=== PATIENT | female | born 1970 | race Caucasian/White ===

== ENCOUNTER 2017-03-17 19:49 | Emergency (ER) | payer OTHER ==
[2017-03-17 20:02] VITALS: BP 142/93; PULSE 82; TEMP 98.1; BMI 23.3
--- NOTE | 2017-03-17 20:12 | PDOC ---
History of Present Illness - General Chief Complaint: Foreign Body (FB) Stated Complaint: CHICKEN PIECE STUCK IN THROAT Time Seen by Provider: 03/17/17 20:11 History Source: Patient Exam Limitations: No Limitations - History of Present Illness Timing/Duration: 1-3 hours Severity: mild Associated Symptoms: reports: denies symptoms Past History - Travel Traveled outside of the country in the last 30 days: No Close contact w/someone who was outside of country & ill: No - Past Medical History Allergies/Adverse Reactions: Allergies Allergy/AdvReac Type Severity Reaction Status Date / Time No Known Allergies Allergy Verified 03/17/17 19:54 Home Medications: Ambulatory Orders Famotidine [Pepcid] 20 mg PO DAILY #14 tablet 08/09/16 Omeprazole 10 mg PO ASDIR 08/09/16 Anemia: No Asthma: No Cancer: No Cardiac Disorders: No CVA: No COPD: No CHF: No Dementia: No Diabetes: No GI Disorders: Yes (Hiatal hernia, GERD) Disorders: No HTN: No Hypercholesterolemia: No Liver Disease: No Seizures: No Thyroid Disease: No - Surgical History Abdominal Surgery: No Appendectomy: No Cardiac Surgery: No Cholecystectomy: No Lung Surgery: No Neurologic Surgery: No Orthopedic Surgery: No - Psycho/Social/Smoking Cessation Hx Anxiety: No Suicidal Ideation: No Smoking Status: No Smoking History: Never smoked Have you smoked in the past 12 months: No Number of Cigarettes Smoked Daily: 0 Information on smoking cessation initiated: No Hx Alcohol Use: No Drug/Substance Use Hx: No Substance Use Type: None Hx Substance Use Treatment: No Patient Lives Alone: No Lives with/in: spouse/SO Review of Systems - Review of Systems Able to Perform ROS?: Yes Constitutional: No: Symptoms Reported HEENTM: Yes: Other Respiratory: No: Symptoms reported Integumentary: No: Symptoms Reported *Physical Exam - Vital Signs Last Vital Signs Temp Pulse Resp BP Pulse Ox 98.1 F 82 20 142/93 98 03/17/17 19:55 03/17/17 19:55 03/17/17 19:55 03/17/17 19:55 03/17/17 19:55 - Physical Exam General Appearance: Yes: Nourished, Appropriately Dressed. No: Apparent Distress HEENT: negative: Pharynx Normal (noted thin piece of chicken lodged to left posterior pharynx protruding from behind the uvula) Neck: positive: Supple. negative: Tender Medical Decision Making - Medical Decision Making 03/17/17 20:18 Pt with chicken lodged to back of throat. Removed using alligator forceps. Discharge home *DC/Admit/Observation/Transfer Diagnosis at time of Disposition: Foreign body in throat Qualifiers: Encounter type: initial encounter Qualified Code(s): T17.208A - Unspecified foreign body in pharynx causing other injury, initial encounter - Discharge Dispostion Disposition: HOME Condition at time of disposition: Improved - Referrals Referrals: Vandana Dobson MD [Primary Care Provider] - - Patient Instructions Printed Discharge Instructions: DI for Foreign Body, Swallowed-Adult Additional Instructions: You have no restrictions presently .
== END 2017-03-17 20:14 | disposition home or self-care (01) ==
LOC: JER 19:49
DX: K21.9 Gastro-esophageal reflux disease without esophagitis (principal)
CPT/HCPCS: 99281-25

== ENCOUNTER 2017-09-13 00:01 | Emergency (ER) | payer OTHER ==
[2017-09-13 00:50] VITALS: BP 138/88; PULSE 78; TEMP 97.7; BMI 23.0
--- NOTE | 2017-09-13 01:07 | PDOC ---
History of Present Illness - General Chief Complaint: Sore Throat Stated Complaint: PAIN Time Seen by Provider: 09/13/17 01:06 History Source: Patient - History of Present Illness Initial Comments: 09/13/17 02:03 47 year old female right sided neck/ throat painx 2-3 weeks. patient has followed up with pmd who has send thyroid u/s and TFTs which are wnl. denies foreign body, cough, nasal congestion. patient has a history of 09/13/17 02:11 Past History - Past Medical History Allergies/Adverse Reactions: Allergies Allergy/AdvReac Type Severity Reaction Status Date / Time No Known Allergies Allergy Verified 03/17/17 19:54 Home Medications: Ambulatory Orders Omeprazole 10 mg PO ASDIR 08/09/16 Anemia: No Asthma: No Cancer: No Cardiac Disorders: No CVA: No COPD: No CHF: No Dementia: No Diabetes: No GI Disorders: Yes (Hiatal hernia, GERD) Disorders: No HTN: No Hypercholesterolemia: No Liver Disease: No Seizures: No Thyroid Disease: No - Surgical History Abdominal Surgery: No Appendectomy: No Cardiac Surgery: No Cholecystectomy: No Lung Surgery: No Neurologic Surgery: No Orthopedic Surgery: No - Suicide/Smoking/Psychosocial Hx Smoking Status: No Smoking History: Never smoked Have you smoked in the past 12 months: No Number of Cigarettes Smoked Daily: 0 Hx Alcohol Use: No Drug/Substance Use Hx: No Substance Use Type: None Hx Substance Use Treatment: No *Physical Exam - Vital Signs Last Vital Signs Temp Pulse Resp BP Pulse Ox 97.7 F 78 18 138/88 99 09/13/17 00:33 09/13/17 00:33 09/13/17 00:33 09/13/17 00:33 09/13/17 00:33 - Physical Exam General Appearance: Yes: Appropriately Dressed HEENT: positive: Normal ENT Inspection Respiratory/Chest: positive: Lungs Clear, Normal Breath Sounds Gastrointestinal/Abdominal: positive: Normal Bowel Sounds, Soft Integumentary: positive: Normal Color, Dry, Warm Neurologic: positive: Fully Oriented, Alert, Normal Mood/Affect *DC/Admit/Observation/Transfer Diagnosis at time of Disposition: Throat pain in adult - Discharge Dispostion Disposition: HOME - Referrals Referrals: Bernadine Hirsch MD [Primary Care Provider] - Call tomorrow - Patient Instructions Printed Discharge Instructions: Sore Throat - Post Discharge Activity
[2017-09-13] MEDS ORDERED: IBUPROFEN 600 MG TABLET (FP) PO ONE ×2 (01:44→01:50)
== END 2017-09-13 02:21 | disposition home or self-care (01) ==
LOC: JER 00:01
DX: M54.2 Cervicalgia (principal); R07.0 Pain in throat
CPT/HCPCS: 99281-25

== ENCOUNTER 2018-01-03 23:53 | Emergency (ER) | payer OTHER ==
[2018-01-03] MEDS ORDERED: KETOROLAC TROMETHAMINE 60 MG/2 ML VIAL IM ONE (23:59)
[2018-01-04] MEDS ORDERED: diazePAM 2 MG TABLET PO ONE
[2018-01-04 00:02] VITALS: BP 144/99; PULSE 69; BMI 23.9
--- NOTE | 2018-01-04 00:03 | PDOC ---
History of Present Illness - General Chief Complaint: Pain, Acute Stated Complaint: PRESSURE HEADACHE/STRESS Time Seen by Provider: 01/03/18 23:58 History Source: Patient Exam Limitations: No Limitations - History of Present Illness Initial Comments: 01/04/18 00:10 This is a 47-year-old female who comes in complaining of a tension type headache. Patient said that she has history of tension headaches when she has a screening minutes and stress related to her some 24-year-old son who is still living at home. Patient said there is been a lot of stress lately and she comes in complaining of a headache. Patient took Tylenol prior to coming in but didn' t want to take anything stronger. Patient denied any fever, chills, neck stiffness, vomiting or change in vision or neurological complaints. PAST MEDICAL HISTORY: no significant history PAST SURGICAL HISTORY: no significant history FAMILY HISTORY: no pertinant history SOCIAL HISTORY: Pt lives with family and is employed. MEDICATIONS: reviewed ALLERGIES: As per nursing notes Review of Systems General: No fevers or chills, no weakness, no weight loss HEENT: No change in vision. No sore throat,. No ear pain CardioVascular: No chest pain or shortness of breath Respiratory:No cough, or wheezing. Gastrointestinal: no nausea, vomitting, diarrhea or constipation, No rectal bleeding Genitourinary: No dysuria, hematuria, or frequency Musculoskeletal: No joint or muscle pain or swelling Neurologic: No headache, vertigo, dizziness or loss of consciousness Psychiatric: nor depression Skin: No rashes or easy bruising Endocrine: no increased thirst or abnormal weight change Allergic: no skin or latex allergy All other systems reviewed and normal GENERAL: The patient is awake, alert, and fully oriented, in no acute distress. HEAD: Normal with no signs of trauma. EYES: Pupils equal, round and reactive to light, extraocular movements intact, sclera anicteric, conjunctiva clear. EXTREMITIES: Normal range of motion, no edema. NEUROLOGICAL: Normal speech, normal gait. grossly intact PSYCH: Normal mood, normal affect. SKIN: Warm, Dry, normal turgor, no rashes or lesions noted. Assessment and plan: This is a 47-year-old female who comes in with a tension type headache. Patient given Motrin and Valium with improvement of her symptoms. Patient discharged home with her who drove her home. Past History - Past Medical History Allergies/Adverse Reactions: Allergies Allergy/AdvReac Type Severity Reaction Status Date / Time No Known Allergies Allergy Verified 01/03/18 23:55 Home Medications: Ambulatory Orders NK [No Known Home Medication] 01/03/18 Anemia: No Asthma: No Cancer: No Cardiac Disorders: No CVA: No COPD: No CHF: No DVT: No Dementia: No Diabetes: No Dialysis: No GI Disorders: Yes (Hiatal hernia, GERD) Disorders: No HTN: No Hypercholesterolemia: No Kidney Stones: No Liver Disease: No Psychiatric Problems: No Seizures: No Thyroid Disease: No Lung CA: No - Surgical History Abdominal Surgery: No Appendectomy: No Cardiac Surgery: No Cholecystectomy: No Lung Surgery: No Neurologic Surgery: No Orthopedic Surgery: No - Suicide/Smoking/Psychosocial Hx Smoking Status: No Smoking History: Never smoked Have you smoked in the past 12 months: No Number of Cigarettes Smoked Daily: 0 Hx Alcohol Use: No Drug/Substance Use Hx: No Substance Use Type: None Hx Substance Use Treatment: No *DC/Admit/Observation/Transfer Diagnosis at time of Disposition: Stress at home Headache Qualifiers: Headache type: tension-type Headache chronicity pattern: episodic headache Intractability: not intractable Qualified Code(s): G44.219 - Episodic tension- type headache, not intractable - Discharge Dispostion Disposition: HOME Condition at time of disposition: Stable Decision to Admit order: No - Referrals - Patient Instructions Additional Instructions: Return to the emergency department immediately with ANY new, persistent or worsening symptoms. Continue any medications as previously prescribed by your physician. You should follow up with your primary doctor as soon as possible regarding today's emergency department visit. . Please make sure your doctor reviews the results of your emergency evaluation. Thank you for coming to the Emergency Department today for your care. It was a pleasure to see you today. Please note that your evaluation is INCOMPLETE until you follow-up with your doctor. - Post Discharge Activity
[2018-01-04] MEDS ORDERED: diazePAM 2 MG TABLET ONE (00:08)
[2018-01-04] MEDS ORDERED: KETOROLAC TROMETHAMINE 60 MG/2 ML VIAL ONE (00:08)
== END 2018-01-04 00:36 | disposition home or self-care (01) ==
LOC: FER 23:53
PROC: 3E0233Z Introduction of Anti-inflammatory into Muscle, Percutaneous Approach (ICD-10-PCS; principal; 2018-01-03)
DX: G44.219 Episodic tension-type headache, not intractable (principal); F43.0 Acute stress reaction; K21.9 Gastro-esophageal reflux disease without esophagitis
CPT/HCPCS: 99281-25

== ENCOUNTER 2019-04-16 19:43 | Emergency (ER) | payer OTHER ==
[2019-04-16 19:53] VITALS: BP 136/85; PULSE 97; TEMP 98.5; BMI 23.3
--- NOTE | 2019-04-16 19:53 | PDOC ---
Rapid Medical Evaluation Medical Evaluation: Allergies Allergy/AdvReac Type Severity Reaction Status Date / Time No Known Allergies Allergy Verified 02/16/18 14:23 I have performed a brief in-person evaluation of this patient. The patient presents with a chief complaint of: c/o sore throat from 2 days ago ; denies cough, congestion, sob, cp, fever Pertinent physical exam findings: Mild B/L tonsillar enlargement, no exudates; slightly hoarsy voice I have ordered the following: nothing The patient will proceed to the ED for further evaluation. 04/16/19 19:48
--- NOTE | 2019-04-16 20:24 | PDOC ---
History of Present Illness - General Chief Complaint: Sore Throat Stated Complaint: THROAT DISCOMFORT Time Seen by Provider: 04/16/19 19:48 - History of Present Illness Initial Comments: 04/16/19 20:19 48 y/o F w PMH of GERD presents for evaluation of anterior neck pain without any systematic symptoms or difficulty swallowing x 3 days. She has concern about her thyroid and would like an US Past History - Past Medical History Allergies/Adverse Reactions: Allergies Allergy/AdvReac Type Severity Reaction Status Date / Time No Known Allergies Allergy Verified 04/16/19 19:50 Home Medications: Ambulatory Orders Diazepam [Valium] 2 mg PO DAILY PRN #14 tablet MDD 1 01/04/18 Naproxen 500 mg PO BID #15 tablet 01/04/18 Naproxen 375 mg PO PRN #30 tablet 02/16/18 Anemia: No Asthma: No Cancer: No Cardiac Disorders: No CVA: No COPD: No CHF: No DVT: No Dementia: No Diabetes: No Dialysis: No GI Disorders: Yes (Hiatal hernia, GERD) Disorders: No HTN: No Hypercholesterolemia: No Kidney Stones: No Liver Disease: No Psychiatric Problems: No Seizures: No Thyroid Disease: No Lung CA: No - Surgical History Abdominal Surgery: No Appendectomy: No Cardiac Surgery: No Cholecystectomy: No Lung Surgery: No Neurologic Surgery: No Orthopedic Surgery: No - Suicide/Smoking/Psychosocial Hx Smoking Status: No Smoking History: Never smoked Have you smoked in the past 12 months: No Number of Cigarettes Smoked Daily: 0 Hx Alcohol Use: No Drug/Substance Use Hx: No Substance Use Type: None Hx Substance Use Treatment: No Review of Systems - Review of Systems HEENTM: Yes: See HPI *Physical Exam - Vital Signs Last Vital Signs Temp Pulse Resp BP Pulse Ox 98.5 F 97 H 18 136/85 98 04/16/19 19:50 04/16/19 19:50 04/16/19 19:50 04/16/19 19:50 04/16/19 19:50 - Physical Exam Comments: 04/16/19 20:20 HEAD: NC/AT EYES: Conjuntiva clear Ears: Canals and TM's normal NOSE: No d/c THROAT: Moist mucous membrances, oral pharanx clear, uvula midline NECK: Supple without adenopathy; mild anterior neck tenderness w/o palpable masses CARDIAC: S1 S2 LUNGS: CTA Full and Equal breath sounds ABDOMEN: Soft NT ND MS: Full ROM in all joints without edema NEUROLOGIC: No gross sensory or motor deficits, NVID SKIN: Normal color and temperature no lesions or rashes ED Treatment Course - RADIOLOGY Radiology Studies Ordered: Category Date Time Status THYROID US [US] Stat Ultrasound 04/16/19 20:18 Ordered Medical Decision Making - Medical Decision Making 04/16/19 20:20 Pt is scared and would like an US of her thyroid; I ordered the US. However Radiology called and stated they do not do thyroid US. I will have her f/u with ENT. *DC/Admit/Observation/Transfer Diagnosis at time of Disposition: Neck pain - Discharge Dispostion Disposition: HOME Condition at time of disposition: Stable - Referrals Referrals: Bernadine Hirsch MD [Primary Care Provider] - Jimmy Daiz MD [Staff Physician] - - Patient Instructions Additional Instructions: Unfortunately, emergent thyroid ultrasounds are not done in our Emergency Room as per our radiology department. Please follow up with ENT in 1-2 days for further evaluation and treatment options and return to the emergency room should symptoms worsen. - Post Discharge Activity
== END 2019-04-16 20:30 | disposition home or self-care (01) ==
LOC: JERFT 19:43
DX: M54.2 Cervicalgia (principal)
CPT/HCPCS: 99281-25

== ENCOUNTER 2020-02-16 11:02 | Emergency (ER) | payer OTHER ==
[2020-02-16 11:16] VITALS: BMI 23.9
--- NOTE | 2020-02-16 11:16 | PDOC ---
Rapid Medical Evaluation Chief Complaint: Headache Time Seen by Provider: 02/16/20 11:14 Medical Evaluation: Allergies Allergy/AdvReac Type Severity Reaction Status Date / Time No Known Allergies Allergy Verified 08/10/19 02:27 02/16/20 11:15 CC: lightheadedness, feels nervous, headache, no visual changes, requesting covid testing, although has had no contacts Exam: tachy at 112, afebrile, Plan: tylenol 02/16/20 11:19 Discharge Disposition - Diagnosis Headache - Referrals Referrals: Bernadine Hirsch MD [Primary Care Provider] - - Patient Instructions - Post Discharge Activity
[2020-02-16] MEDS ORDERED: ACETAMINOPHEN 500 MG TABLET (FP) PO ONE (11:19)
[2020-02-16] MEDS ORDERED: ACETAMINOPHEN 325 MG TABLET (FP) ONE (11:25)
--- NOTE | 2020-02-16 12:37 | PDOC ---
Documentation entered by Shawna Gomez SCRIBE, acting as scribe for Jeanne Kelly MD. Jeanne Kelly MD: This documentation has been prepared by the Patricia echeverria Brenda, SCRIBE, under my direction and personally reviewed by me in its entirety. I confirm that the documentation accurately reflects all work, treatment, procedures, and medical decision making performed by me. History of Present Illness - General Chief Complaint: Headache Stated Complaint: BODYACHES/HEADACHE Time Seen by Provider: 02/16/20 11:14 History Source: Patient Exam Limitations: No Limitations - History of Present Illness Initial Comments: 02/16/20 12:04 The patient is a 49 year old female, with a significant PMH of osteoporosis, vertigo, gastritis and frequent headaches who presents to the emergency department for evaluation of 1 day of a severe headache and feeling fatigued. Patient states that yesterday she felt what felt like a painful tension headache, whereas today she feels very lightheaded, "not herself" and nauseas. She also states she felt like her nose area was warmer, as if she was getting a cold. Endorses sneezing and feeling very anxious and unsteady. She states that she does not know if she is short of breath or can't catch her breath from being anxious. She also notes feeling the need to cry. The patient denies lost of taste/smell. Denies chest pain and dizziness. Denies fever, chills, vomiting, diarrhea and constipation. Denies dysuria, frequency, urgency and hematuria. Allergies: NKA Social history: None reported Past History - Medical History Allergies/Adverse Reactions: Allergies Allergy/AdvReac Type Severity Reaction Status Date / Time No Known Allergies Allergy Verified 08/10/19 02:27 Home Medications: Ambulatory Orders Omeprazole 20 mg PO DAILY 02/16/20 Anemia: No Asthma: No Cancer: No Cardiac Disorders: No CVA: No COPD: No CHF: No DVT: No Dementia: No Diabetes: No Dialysis: No GI Disorders: Yes (Hiatal hernia, GERD) Disorders: No HTN: No Hypercholesterolemia: No Kidney Stones: No Liver Disease: No Psychiatric Problems: No Seizures: No Thyroid Disease: No Lung CA: No Other medical history: Osteopororis - Surgical History Abdominal Surgery: No Appendectomy: No Cardiac Surgery: No Cholecystectomy: No Lung Surgery: No Neurologic Surgery: No Orthopedic Surgery: No - Immunization History Immunization Up to Date: Yes - Psycho-Social/Smoking History Smoking Status: No Smoking History: Never smoked Have you smoked in the past 12 months: No Number of Cigarettes Smoked Daily: 0 Information on smoking cessation initiated: No - Substance Abuse Hx (Audit-C & DAST Scrn) How often the patient has a drink containing alcohol: Never Score: In Men: 4 or > Positive; In Women: 3 or > Positive: 0 Screen Result (Pos requires Nsg. Audit-10AR): Negative Review of Systems - Review of Systems Able to Perform ROS?: Yes Comments:: 02/16/20 12:16 GENERAL/CONSTITUTIONAL: (+) Tired. No fever or chills. No weakness. HEAD, EYES, EARS, NOSE AND THROAT: No change in vision. No ear pain or discharge. No sore throat. CARDIOVASCULAR: No chest pain RESPIRATORY: No cough, wheezing, or hemoptysis. GASTROINTESTINAL: (+)nausea. No vomiting, diarrhea or constipation. GENITOURINARY: No dysuria, frequency, or change in urination. MUSCULOSKELETAL: No joint or muscle swelling or pain. No neck or back pain. SKIN: No rash NEUROLOGIC: (+) Headache (+) Lightheadedness. No vertigo, loss of consciousness, or change in strength/sensation. ENDOCRINE: No increased thirst. No abnormal weight change. HEMATOLOGIC/LYMPHATIC: No anemia, easy bleeding, or history of blood clots. ALLERGIC/IMMUNOLOGIC: No hives or skin allergy. *Physical Exam - Vital Signs Last Vital Signs Temp Pulse Resp BP Pulse Ox 99.3 F 112 H 16 145/88 98 02/16/20 11:12 02/16/20 11:12 02/16/20 11:12 02/16/20 11:12 02/16/20 11:12 - Physical Exam 02/16/20 12:18 GENERAL:(+) Anxious appearing (+) Tearful. Awake, alert, and fully oriented, in no acute distress HEAD: No signs of trauma EYES: PERRLA, EOMI, sclera anicteric, conjunctiva clear ENT: Auricles normal inspection, hearing grossly normal, nares patent, oropharynx clear without exudates. Moist mucosa NECK: Normal ROM, supple, no lymphadenopathy, JVD, or masses LUNGS: Breath sounds equal, clear to auscultation bilaterally. No wheezes, and no crackles HEART: Regular rate and rhythm, normal S1 and S2, no murmurs, rubs or gallops ABDOMEN: Soft, nontender, normoactive bowel sounds. No guarding, no rebound. No masses EXTREMITIES: Normal range of motion, no edema. No clubbing or cyanosis. No cords, erythema, or tenderness NEUROLOGICAL: Cranial nerves II through XII grossly intact. Normal speech, normal gait SKIN: Warm, Dry, normal turgor, no rashes or lesions noted. ED Treatment Course - LABORATORY CBC & Chemistry Diagram: 02/16/20 12:00 02/16/20 12:00 - Medications Given in the ED: ED Medications Discontinued Medications Generic Name Dose Route Start Last Admin Trade Name Freq PRN Reason Stop Dose Admin Acetaminophen 975 mg 02/16/20 11:19 02/16/20 11:32 Tylenol - PO 02/16/20 11: 975 mg ONCE ONE Administration Medical Decision Making - Medical Decision Making 02/16/20 12:35 Pt presents to the ED complaining of multiple non specific symptoms. Patient is requesting COVID testing. Symptoms are low risk, but given that the patient is concerned and lives with family members who are at risk, will perform testing. Will check labs to evaluate for dehydration or anemia. 02/16/20 13:27 Pt feels improved. Labs are within normal limits. will discharge home with in structions to return to the ED for worsening symptoms. Will instruct to self isolate at home until COVID is resulted. Discharge - Discharge Information Problems reviewed: Yes Clinical Impression/Diagnosis: Headache Condition: Good Disposition: HOME - Admission No - Follow up/Referral Referrals: Bernadine Hirsch MD [Primary Care Provider] - - Patient Discharge Instructions Patient Printed Discharge Instructions: [facility] COVID-19 Isolation Protocol, [facility]-Coronavirus Instructions Additional Instructions: you came to the Ed because you were feeling lightheaded and anxious. These symptoms are not typical of covid, but we did perform a test for COVID in the ED. this test will take up to three days to come back. YOU SHOULD SELF ISOLATE AT HOME UNTIL YOU HAVE THE RESULTS OF THE TEST. You should return to the ED for worsening symptoms, severe headache or lightheadness, severe nausea and vomiti ng. follow up with your doctor. - Post Discharge Activity
[2020-02-16 12:56] LABS: BASO % 0.5 % (0-2.0); EOS % 0.2 % (0-4.5); HEMATOCRIT 42.9 % (32.4-45.2); HEMOGLOBIN 13.9 GM/dL (10.7-15.3); LYMPH % 17.3 % (8-40); MCHC 32.3 g/dl (32.0-36.0); MEAN CELL VOLUME 83.6 fl (80-96); MEAN PLT VOLUME 10.5 fl (7.5-11.1); MONO % 9.2 % (3.8-10.2); NEUT % 72.8 % (42.8-82.8); PLATELET COUNT 256 K/MM3 (134-434); RBC 5.13 M/mm3 (3.60-5.2); RDW 14.8 % (11.6-15.6); WHITE BLOOD COUNT 8.8 K/mm3 (4.0-10.0)
[2020-02-16 13:18] LABS: ALBUMIN 4.1 g/dl (3.4-5.0); BILIRUBIN,TOTAL 0.5 mg/dL (0.2-1); BLOOD UREA NITROGEN 11.4 mg/dL (7-18); CALCIUM 9.8 mg/dL (8.5-10.1); CREATININE 0.9 mg/dL (0.55-1.3); POTASSIUM 3.6 mmol/L (3.5-5.1); TOT PROT 8.3 g/dl (6.4-8.2)
[2020-02-16 13:45] VITALS: BP 133/75; PULSE 81; TEMP 98.5
== END 2020-02-16 13:44 | disposition home or self-care (01) ==
LOC: JER 11:02
DX: R51 Headache (principal)
CPT/HCPCS: 36415; 80053; 85025; 99283-25; U0003